=== PATIENT | male | born 1955 | race Caucasian/White ===

== ENCOUNTER 2017-10-29 08:29 | Emergency (ER) | payer MEDICARE, SELFPAY ==
[2017-10-29 08:30] VITALS: BP 180/130; PULSE 90; RESP 18; TEMP 37; O2SAT 98; BMI 32.9
--- NOTE | 2017-10-29 08:44 | EKG12_ITS ---
Test Reason : GI Blood Pressure : / mmHG Vent. Rate : 067 BPM Atrial Rate : 067 BPM P-R Int : 178 ms QRS Dur : 088 ms QT Int : 360 ms P-R-T Axes : 058 031 014 degrees QTc Int : 380 ms Normal sinus rhythm with sinus arrhythmia Normal ECG Confirmed by CHALO EATON, SHADIA ([id number]), material expeditor BEKAH COULTER ([id number] on 11/03/2017 3:33:54 PM Referred By: ANDRADE Confirmed By:SHADIA ISABEL MD
--- NOTE | 2017-10-29 08:49 | ED.DCSUM_ITS ---
- ER Visit Summary Date of Service: 10/29/17 Chief Complaint: Diarrhea History of Present Illness: The patient is a 62 M presenting with diarrhea. Patient states he had 2 normal bowel movements yesterday. He states today he had diarrhea x1. No blood in his stool. No recent antibiotics or travel. He states his is sick with URI symptoms. She does not have diarrhea. He denies fever. Denies chest pain. He states he feels generally weak and tired. He has nausea with no vomiting. Denies abdominal pain. Denies other complaints. Physical Examination: Vitals are stable. Patient is afebrile. Alert no acute distress. HEENT exam is unremarkable. Neck is supple. Lungs are clear and equal bilaterally. Heart is regular rate and rhythm. Abdomen is soft nontender nondistended. No rebound or guarding. Reducible hernia. Extremities are unremarkable. Skin is warm and dry. No focal neurologic deficit. Remainder of exam is unremarkable. Emergency Department Course and Treatment: Patient is given IV fluids. CBC, chemistries are unremarkable. Troponin is negative. EKG is sinus rate of 67 with no acute changes. Patient is feeling improved on reevaluation. His repeat blood pressure is improved. He is advised to follow-up with his primary care physician. Advised return to ED for any worsening complaints. Disposition: Discharge home Impression: Diarrhea, generalized weakness This note was generated with [employer] dictation software. It may contain incorrect words, spelling, and punctuation that were not noted in review of the chart prior to signing ED Disposition - Plan for ED Patient: Chief Complaint: Diarrhea Referrals: Travis Naik MD [Primary Care Provider] -
[2017-10-29 09:05] LABS: Absolute Lymphocyte Count 1.37 X10^3/ul (0.83-4.51); Absolute Neutrophil Count 4.4 X10^3/uL (2.0-7.7); Basophil# 0.02 X10^3/uL; Basophil% 0.3 % (0-1); Eosinophil# 0.06 X10^3/uL; Hematocrit 49.3 % (40-54); Hemoglobin 16.6 g/dl (13.0-16.5); Lymphocyte # 1.37 X10^3/ul (4.0); Lymphocyte % 22.2 % (19-41); Mean Corp Hgb Conc 33.7 g/gl (32-36); Mean Corpuscular Hgb 30.2 pg (27.0-32.0); Mean Corpuscular Volume 89.8 fL (80-94); Mean Platelet Vol. 9.5 fl (6.2-12.0); Monocyte# 0.36 X10^3/uL; Monocyte% 5.8 % (0-10); Neutrophil # 4.35 X10^3/uL (2.7-7.7); Neutrophil % 70.4 % (47-70); POSITIVE COUNT NO; POSITIVE DIFFERENTIAL NO; POSITIVE MORPHOLOGY NO; Platelet Count 203 K/mm3 (150-450); RBC Distribution Width CV 13.9 % (11.6-14.6); RBC Distribution Width SD 45.7 fl (35.1-43.9); Red Blood Count 5.49 M/mm3 (4.6-6.2); White Blood Count 6.2 K/mm3 (4.4-11.0)
[2017-10-29] MEDS: 0.9% Normal Saline 1,000 ML 1000 ML IV (09:05)
[2017-10-29 09:14] LABS: Red Blood Cells-Urine 0 SEEN /hpf (0-5)
[2017-10-29 09:18] LABS: Anion Gap 9 (5-15); BUN 9 mg/dL (7-18); BUN/Creat Ratio 10.1 RATIO (10-20); Calcium,Total 9.2 mg/dL (8.5-10.1); Chloride 108 mmol/L (98-107); Creatinine, Serum 0.89 mg/dL (0.70-1.30); EST Glomerular Filtration Rate 91 mL/min (>60); Est Glom Filt Rate - Afr Amer 110 mL/min (>60); Estimated Creatinine Clearance 101.54 ml/min; Glucose 105 mg/dL (74-106); Potassium 4.1 mmol/L (3.5-5.1); Sodium Level 144 mmol/L (136-145)
[2017-10-29 09:31] LABS: Color, Urine Yellow (Yellow); Glucose, Dipstick Normal (Normal); Ketone-Dipstick 5 mg/dl (Negative); Leukocyte Esterase-Dipstick 25 /ul (Negative); Nitrite-Dipstick Negative (Negative); Occult Blood-Urine Negative /ul (Negative); Protein-Dipstick Negative (Negative); Urine Bilirubin Dipstick Negative (Negative); Urine Clarity Clear (Clear); Urine Urobilinogen Normal (Normal)
[2017-10-29 09:34] LABS: Bacteria 1+ /hpf (None Seen); Mucous, Urine 1+ /hpf (<or=2+); Squamous Epithelial Cells - UA 0-5 SEEN /hpf (0-5); White Blood Cells 0-5 SEEN /hpf (0-5)
--- NOTE | 2017-10-29 11:22 | ED.DEP ---
ED Disposition - Plan for ED Patient: Chief Complaint: Diarrhea Instructions: ED Diarrhea Viral Referrals: Travis Naik MD [Primary Care Provider] -
[2017-10-29 11:51] VITALS: BP 178/102; PULSE 81; RESP 16; O2SAT 98
== END 2017-10-29 11:52 | disposition home or self-care (01) ==
PROVIDERS: Emergency Provider Emergency Medicine; Family Provider Family Medicine; PCP Family Medicine
DX: R19.7 Diarrhea, unspecified (principal); R53.1 Weakness; I10 Essential (primary) hypertension; E03.9 Hypothyroidism, unspecified; Z79.82 Long term (current) use of aspirin; Z79.899 Other long term (current) drug therapy; Z87.820 Personal history of traumatic brain injury
CPT/HCPCS: 80048; 81001; 84484; 85025; 93005; 96360; 96361; 99285; J7030; A4216

== ENCOUNTER 2017-11-09 18:05 | Observation (INO) | payer MEDICARE, SELFPAY ==
[2017-11-09 18:06] VITALS: BP 147/96; PULSE 76; RESP 16; TEMP 37.3; O2SAT 96; BMI 32.8
--- NOTE | 2017-11-09 18:31 | EKG12_ITS ---
Test Reason : SOB Blood Pressure : / mmHG Vent. Rate : 067 BPM Atrial Rate : 067 BPM P-R Int : 170 ms QRS Dur : 092 ms QT Int : 370 ms P-R-T Axes : 057 016 003 degrees QTc Int : 390 ms Normal sinus rhythm with sinus arrhythmia Nonspecific T wave abnormality Abnormal ECG Confirmed by SANTANA EATON, BECKY ([id number]), editor map BEKAH COULTER ([id number]) on 11/11/2017 2:37:50 PM Referred By: MIHIR Confirmed By:BECKY DILLON MD
--- NOTE | 2017-11-09 18:40 | RAD_ITS ---
STUDY: X-RAY CHEST REASON FOR EXAM: Male, 62 years old. Chest pain TECHNIQUE: Single AP portable view of the chest. COMPARISON: 04/18/2016 FINDINGS: The lungs are clear and expanded. There is no demonstrated pleural abnormality. Normal size heart. Normal mediastinum and loyda. Normal visualized pulmonary arteries. Normal visualized aortic arch and descending thoracic aorta. Normal visualized thoracic spine. Normal visualized ribs, clavicles, and shoulders. There is no demonstrated abnormality of the visualized soft tissue structures of the upper abdomen. RAD/Chest 1 View (Portable) IMPRESSION: Normal x-ray examination of the chest. Electronically Signed: Kosta Betts MD at 19:09 EDT , Service support ,
[2017-11-09 18:53] LABS: Absolute Neutrophil Count 4.4 X10^3/uL (2.0-7.7); Basophil# 0.03 X10^3/uL; Basophil% 0.4 % (0-1); Eosinophil# 0.04 X10^3/uL; Eosinophils% 0.6 % (0-5); Hematocrit 45.9 % (40-54); Hemoglobin 15.3 g/dl (13.0-16.5); Lymphocyte % 31.3 % (19-41); Mean Corp Hgb Conc 33.3 g/gl (32-36); Mean Corpuscular Hgb 30.1 pg (27.0-32.0); Mean Corpuscular Volume 90.2 fL (80-94); Mean Platelet Vol. 9.4 fl (6.2-12.0); Monocyte# 0.38 X10^3/uL; Monocyte% 5.4 % (0-10); Neutrophil # 4.36 X10^3/uL (2.7-7.7); Neutrophil % 62.2 % (47-70); Platelet Count 180 K/mm3 (150-450); RBC Distribution Width CV 13.7 % (11.6-14.6); RBC Distribution Width SD 45.2 fl (35.1-43.9); Red Blood Count 5.09 M/mm3 (4.6-6.2)
[2017-11-09 18:54] LABS: POSITIVE COUNT NO; POSITIVE DIFFERENTIAL NO; POSITIVE MORPHOLOGY NO
[2017-11-09 19:11] VITALS: O2SAT 95
[2017-11-09 19:15] LABS: Anion Gap 6 (5-15); BUN 17 mg/dL (7-18); BUN/Creat Ratio 18.1 RATIO (10-20); Calcium,Total 9.1 mg/dL (8.5-10.1); Chloride 108 mmol/L (98-107); Creatinine, Serum 0.94 mg/dL (0.70-1.30); EST Glomerular Filtration Rate 86 mL/min (>60); Est Glom Filt Rate - Afr Amer 104 mL/min (>60); Estimated Creatinine Clearance 96.14 ml/min; Glucose 108 mg/dL (74-106); Potassium 3.4 mmol/L (3.5-5.1); Sodium Level 140 mmol/L (136-145)
[2017-11-09 19:44] VITALS: BP 161/99; PULSE 60; RESP 17; O2SAT 97
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
[2017-11-09 21:55] VITALS: BP 167/89; PULSE 53; RESP 14; O2SAT 100
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
[2017-11-09 22:33] VITALS: BP 174/102; PULSE 57; RESP 16; O2SAT 98
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
[2017-11-10] VITALS (10 sets, daily range): BP systolic 134–176; BP diastolic 78–114; PULSE 60–76; RESP 16–18; TEMP 36.5–36.8; O2SAT 97–98; BMI 32.6
[2017-11-10] MEDS: Pantoprazole Sodium 40 MG Tablet PO ×2 (01:10→11:02)
[2017-11-10] MEDS: Lisinopril 10 MG Tablet PO (01:10)
[2017-11-10 02:18] LABS: D-Dimer Quantitative (DVT/PE) < 0.27 FEU/ug/m (0.27-0.49)
[2017-11-10 02:20] LABS: BNP,B-Type NATRIURETIC PEPTIDE 16.2 pg/mL (0-100)
[2017-11-10 02:21] LABS: AST(SGOT) 34 U/L (15-37); Alanine Aminotransfer ALT/SGPT 25 U/L (16-61); Albumin, Serum 3.8 g/dL (3.2-5.0); Alkaline Phosphatase 57 U/L (45-117); Globulin 3.3 g/dL (2.2-4.2); Magnesium 2.3 mg/dL (1.6-2.6); Protein, Total 7.1 g/dL (6.4-8.2)
[2017-11-10] MEDS: Aspirin 325 MG Tablet PO (04:59)
[2017-11-10] MEDS: Levothyroxine 100 MCG Tablet PO (05:00)
[2017-11-10 07:52] LABS: Cholesterol 167 mg/dL (200); High Density Lipoprotein 47 mg/dL; T4 Free Direct 0.82 ng/dL (0.76-1.46); Thyroid Stim Hormone (TSH) 2.76 uIU/mL (0.358-3.74); Triglycerides 101 mg/dL; Very Low Density Lipoprotein 20 mg/dL (5-40)
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
[2017-11-10 09:44] LABS: Vitamin B12 539 pg/mL (211-911)
[2017-11-10] MEDS: Heparin Injection (Vial) 5,000 UNIT/ML VIAL 5000 UNIT SC (11:01)
[2017-11-10] MEDS: busPIRone 5 MG Tablet 10 MG PO (11:02)
--- NOTE | 2017-11-10 11:25 | STRESSREP_ITS ---
Stress Test Report Pharmacologic myocardial perfusion stress test. 62-year-old man with a history of chest pain. Stress protocol: Resting EKG demonstrates sinus bradycardia with a rate of 57 bpm normal intervals and noted resting blood pressure is 180/110 mmHg. 0.4 mg of regadenoson was infused per usual protocol followed by rapid intravenous saline flush injection continuous EKG monitoring was performed. The maximum heart rate attained was 100 bpm which was a 63% maximum predicted heart rate the maximum workload of 1 metabolic equivalent. At rest were no ST or T-wave changes noted to suggest abnormal flow reserve at peak infusion no ST or T-wave changes were noted suggest abnormal flow reserve. Resting blood pressure is 180 /110 with a final blood pressure 178/100 mmHg. Myocardial perfusion protocol. 14.9 mCi of technetium 99m sestamibi was injected at rest. 0.4 mg regadenoson was infused per usual protocol. Peak infusion 44.7 mCi of technetium 99m sestamibi was injected stress images were obtained stress and rest images were reconstructed and compared in the short axis vertical long and horizontal long axis. Gated images were also obtained pre- Perfusion SPECT analysis: Review of the stress images demonstrate normal uptake of tracer noted in all areas of the myocardium. The resting images similarly demonstrate normal uptake of tracer noted in all areas of the myocardium. No reversibility is noted suggest ischemia no previous infarct is noted. Gated SPECT analysis: The gated ejection fraction is noted to be 63%. Conclusion: Normal pharmacologic myocardial perfusion stress test. Preserved ejection fraction.
--- NOTE | 2017-11-10 14:00 | SLEEP ---
Went to visit patient and explain what to expect for a sleep study, patient engaged in questions and tech answered all questions patient had. Explained that upon discharge he should be scheduled for a overnight sleep study we also talked about the benefits of treating sleep disorders.
--- NOTE | 2017-11-10 15:01 | PN_ITS ---
Patient Problems: Active and Suspected Problems Dyspnea on exertion (Acute) Generalized weakness (Acute) Subjective: No further chest pain. Just complains of being fatigued. Vitals/I&O's: Vital Signs Temp Pulse Resp BP Pulse Ox 36.6 C 71 16 156/81 H 97 11/10/17 10:05 11/10/17 12:26 11/10/17 10:05 11/10/17 10:05 11/10/17 10:05 Oxygen Delivery Method Room Air Weight: 118.4 kg Body Mass Index (BMI) 32.6 Intake and Output for Last 24 Hours 11/08/17 11/09/17 11/10/17 23:59 23:59 23:59 Intake Total 320 / 320 Balance 320 / 320 General: Alert, Cooperative, No apparent distress HEENT: Atraumatic, PERRLA, EOMI Oral: Moist Mucosa, No Gingival or Mucosal Lesions/ Ulcerations Neck: No Nodes, Thyroid Normal Size and Texture Lungs: Clear to auscultation, Normal air movement, No rhonchi, No wheeze Cardiovascular: Regular rate, Regular Rhythm, Normal S1, Normal S2 Abdomen: Bowel Sounds Present, Soft, Non Tender, Non-Distended, No Hepato- splenomegaly Extremities: No edema, No Calf Tenderness Skin: No rashes, No breakdown Musculoskeletal: No Tenderness to Palpation of Joints or Extremities, No Muscle Wasting Lymphatic: No Cervical, Supraclavicular, or Inguinal Adenopathy, Cervical Adenopathy Psych/Mental Status: Normal Affect, Appropriate Laboratory Results 11/10/17 00:44: D-Dimer Quant (PE/DVT) < 0.27 L 11/10/17 00:44: Magnesium 2.3, Total Bilirubin 0.60, Direct Bilirubin 0.10, AST 34, ALT 25, Alkaline Phosphatase 57, Total Protein 7.1, Albumin 3.8, Globulin 3.3 11/10/17 00:44: B-Natriuretic Peptide 16.2 11/10/17 00:44: Troponin I < 0.02 11/10/17 05:04: Triglycerides 101, Cholesterol 167, LDL Cholesterol 100, VLDL Cholesterol 20, HDL Cholesterol 47, Folate 34.80, TSH 2.76, Free T4 0.82 11/10/17 05:04: Vitamin B12 539 11/10/17 05:04: Troponin I < 0.02 11/10/17 08:05: Troponin I < 0.02 11/10/17 14:47: Troponin I Pending Current [facility]ations [facility] Admin: 11/10/17 04:59 Dose: 325 mg Buspirone HCl (Buspar) 10 mg PO DAILY [facility] Last Admin: 11/10/17 11:02 Dose: 10 mg Heparin Sodium (Porcine) (Heparin Na) 5,000 unit SC BID [facility] Last Admin: 11/10/17 11:01 Dose: 5,000 units Hydralazine HCl (Apresoline Iv) 10 mg IV Q4H PRN PRN PRN Reason: SBP>180 Levothyroxine Sodium (Synthroid) 100 mcg PO DAILY@0600 [facility] Last Admin: 11/10/17 05:00 Dose: 100 mcg Lisinopril (Zestril) 10 mg PO DAILY [facility] Last Admin: 11/10/17 02:03 Dose: Not Given Nitroglycerin (Nitrostat) 0.4 mg SUBLINGUAL Q5M PRN PRN Reason: CHEST PAIN Pantoprazole Sodium (Protonix) 40 mg PO DAILY [facility] Last Admin: 11/10/17 11:02 Dose: 40 mg Potassium Chloride (K-Dur) 20 meq PO DAILY [facility] Last Admin: 11/10/17 11:02 Dose: 20 meq Sodium Chloride () 5 - 30 ml IV UD PRN PRN Reason: SALINE FLUSH Medical Necessity - Tobacco Use Smoking Status: Former smoker Assessment/Plan Active and Suspected Problems Dyspnea on exertion (Acute) Generalized weakness (Acute) 1. chest pain: * stress test negative. * no further work up 2. Fatigue * no definitive etiology identified at this time. * will need follow up with PSG. notes apneic episodes at home. 3. TBI * no szr on EEG * follow up with neurology as outpt.
--- NOTE | 2017-11-10 15:03 | PCM.DC ---
- Discharge Diagnoses Current Active Problems: Current Active and Chronic Problems Dyspnea on exertion (Acute) Generalized weakness (Acute) Traumatic brain injury (Chronic) Hypothyroidism (Chronic) You will use the following diet at home:: No restrictions Your food should be the consistency of: Regular Your liquids should be the consistency of: Regular/Thin Call your doctor if you observe: Fever of 101 or Higher, Shortness of breath, Chest pain Allergies/Adverse Reactions: Allergies No Known Allergies Allergy (Verified 10/29/17 08:33) Medications to take at Discharge Levothyroxine [Synthroid] 100 mcg PO DAILY 11/01/14 Aspirin 325 mg PO BID 04/13/17 Ibuprofen [Motrin] 800 mg PO TID PRN PRN #20 tablet 04/13/17 Potassium 3 day PO DAILY 11/09/17 Potassium Chloride [K-Dur] 20 meq PO DAILY 11/09/17 busPIRone [Buspar] 10 mg PO DAILY 11/09/17 Lisinopril [Zestril] 10 mg PO DAILY #30 tab 11/10/17 The following prescriptions were given: Lisinopril [Zestril] 10 mg PO DAILY #30 tab Primary Care Physician: Travis Naik MD [Primary Care Provider] - Within 2 Weeks Please Follow Up With: Jl Church MD - sleep study When: 2-4 weeks Proposed Discharge Date: 11/10/17
--- NOTE | 2017-11-10 15:05 | PCM.DC.SUM ---
Discharge Date and Diagnosis - Problem List Patient Problems: Active and Suspected Problems Fatigue (Acute) Chest pain (Acute) Date of Admission: 11/09/17 Date of Discharge: 11/10/17 - Primary Discharge Diagnosis Active and Suspected Problems Fatigue (Acute) Chest pain (Acute) - Secondary Discharge Diagnosis Chronic Problems Traumatic brain injury (Chronic) Hypothyroidism (Chronic) Hospital Course and Treatment Imaging Results: Clinical Impression(s) from Imaging Studies Chest X-Ray 11/09/17 18:40 IMPRESSION: Normal x-ray examination of the chest. Electronically Signed: Kosta Betts MD at 19:09 EDT , Service support , Operations: None Procedures: Stress test Summary of Care Provided: The patient is a 62 year old M presents with weakness and chest pain. Stress negative. Seen by neuro for h/o TBI. No szr on EEG. Did recommend outpt PSG to eval for ZOHRA. Fatigue maybe multifactorial.Pt started on lisinopril for hypertension.[] Discharge Diet: No Restrictions Discharge Activity: Return to Normal Activity Call your doctor if you observe: Fever of 101 or Higher, Shortness of breath, Chest pain Home Medications: Medications to take at Discharge Levothyroxine [Synthroid] 100 mcg PO DAILY 11/01/14 Aspirin 325 mg PO BID 04/13/17 Ibuprofen [Motrin] 800 mg PO TID PRN PRN #20 tablet 04/13/17 Potassium 3 day PO DAILY 11/09/17 Potassium Chloride [K-Dur] 20 meq PO DAILY 11/09/17 busPIRone [Buspar] 10 mg PO DAILY 11/09/17 Lisinopril [Zestril] 10 mg PO DAILY #30 tab 11/10/17 Following Prescrptions Were Given to Patient: Lisinopril [Zestril] 10 mg PO DAILY #30 tab Primary Care Physician: Travis Naik MD [Primary Care Provider] - Within 2 Weeks Please Follow Up With: Jl Church MD - sleep study When: 2-4 weeks Disposition: Home Minutes spent on discharge:: 28 Patient Condition:: Good Medical Necessity - Tobacco Use Smoking Status: Former smoker Meaningful Use Info Meaningful Use Diagnoses (Choose all that apply): None applicable Code Visit OBSV E&M: 29467 Observation care discharge
--- NOTE | 2017-11-10 15:08 | DS.PCM_ITS ---
Discharge Date and Diagnosis - Problem List Patient Problems: Active and Suspected Problems Fatigue (Acute) Chest pain (Acute) Date of Admission: 11/09/17 Date of Discharge: 11/10/17 - Primary Discharge Diagnosis Active and Suspected Problems Fatigue (Acute) Chest pain (Acute) - Secondary Discharge Diagnosis Chronic Problems Traumatic brain injury (Chronic) Hypothyroidism (Chronic) Hospital Course and Treatment Imaging Results: Clinical Impression(s) from Imaging Studies Chest X-Ray 11/09/17 18:40 IMPRESSION: Normal x-ray examination of the chest. Electronically Signed: Kosta Betts MD at 19:09 EDT , Service support , Operations: None Procedures: Stress test Summary of Care Provided: The patient is a 62 year old M presents with weakness and chest pain. Stress negative. Seen by neuro for h/o TBI. No szr on EEG. Did recommend outpt PSG to eval for ZOHRA. Fatigue maybe multifactorial.Pt started on lisinopril for hypertension.[] Discharge Diet: No Restrictions Discharge Activity: Return to Normal Activity Call your doctor if you observe: Fever of 101 or Higher, Shortness of breath, Chest pain Home Medications: Medications to take at Discharge Levothyroxine [Synthroid] 100 mcg PO DAILY 11/01/14 Aspirin 325 mg PO BID 04/13/17 Ibuprofen [Motrin] 800 mg PO TID PRN PRN #20 tablet 04/13/17 Potassium 3 day PO DAILY 11/09/17 Potassium Chloride [K-Dur] 20 meq PO DAILY 11/09/17 busPIRone [Buspar] 10 mg PO DAILY 11/09/17 Lisinopril [Zestril] 10 mg PO DAILY #30 tab 11/10/17 Following Prescrptions Were Given to Patient: Lisinopril [Zestril] 10 mg PO DAILY #30 tab Primary Care Physician: Travis Naik MD [Primary Care Provider] - Within 2 Weeks Please Follow Up With: Jl Church MD - sleep study When: 2-4 weeks Disposition: Home Minutes spent on discharge:: 28 Patient Condition:: Good Medical Necessity - Tobacco Use Smoking Status: Former smoker Meaningful Use Info Meaningful Use Diagnoses (Choose all that apply): None applicable Code Visit OBSV E&M: 39584 Observation care discharge
== END 2017-11-10 15:04 | disposition home or self-care (01) ==
LOC: ED 18:41 → PCU 23:22
PROVIDERS: Admitting Provider Internal Medicine; Emergency Provider Emergency Medicine; Family Provider Family Medicine; PCP Family Medicine
DX: R07.89 Other chest pain (principal); I10 Essential (primary) hypertension; R06.09 Other forms of dyspnea; K43.9 Ventral hernia without obstruction or gangrene; Z87.891 Personal history of nicotine dependence; Z87.820 Personal history of traumatic brain injury; Z79.899 Other long term (current) drug therapy; Z79.82 Long term (current) use of aspirin; E03.9 Hypothyroidism, unspecified; J44.9 Chronic obstructive pulmonary disease, unspecified; E87.6 Hypokalemia; R53.83 Other fatigue; G47.33 Obstructive sleep apnea (adult) (pediatric)
CPT/HCPCS: 36415; 71045; 78452; 80048; 80061; 80076; 82607; 82746; 83735; 83880; 84439; 84443; 84484; 85025; 85379; 93005; 93017; 96372; 99218; 99285; A9500; Q9957; A4216; G0378; J2785

== ENCOUNTER → 2017-11-14 20:00 | Outpatient (CLI) | payer MEDICARE, SELFPAY | PROVIDERS: Family Provider Family Medicine; PCP Family Medicine; Visit Provider Psychiatry & Neurology Neurology | DX: G47.33 Obstructive sleep apnea (adult) (pediatric) (principal) | CPT/HCPCS: 95811 ==

== ENCOUNTER 2018-03-21 17:42 | Emergency (ER) | payer MEDICARE, SELFPAY ==
[2018-03-21 17:43] VITALS: BP 177/97; PULSE 56; RESP 11; TEMP 36.7; O2SAT 99; BMI 31.4
--- NOTE | 2018-03-21 18:19 | EKG12_ITS ---
Test Reason : GENERAL ILLNESS Blood Pressure : / mmHG Vent. Rate : 068 BPM Atrial Rate : 068 BPM P-R Int : 186 ms QRS Dur : 090 ms QT Int : 390 ms P-R-T Axes : 074 045 026 degrees QTc Int : 414 ms Sinus rhythm with marked sinus arrhythmia Otherwise normal ECG Confirmed by SANTANA EATON, BECKY ([id number]), non linear editor BEKAH COULTER ([id number] on 03/24/2018 1:09:46 PM Referred By: ANGEL Confirmed By:BECKY DILLON MD
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
[2018-03-21 18:32] LABS: Absolute Lymphocyte Count 1.72 X10^3/ul (0.83-4.51); Absolute Neutrophil Count 3.3 X10^3/uL (2.0-7.7); Basophil# 0.04 X10^3/uL; Basophil% 0.7 % (0-1); Eosinophil# 0.03 X10^3/uL; Eosinophils% 0.6 % (0-5); Hematocrit 42.4 % (40-54); Hemoglobin 14.4 g/dl (13.0-16.5); Lymphocyte # 1.72 X10^3/ul (4.0); Lymphocyte % 31.9 % (19-41); Mean Corpuscular Hgb 30.7 pg (27.0-32.0); Mean Corpuscular Volume 90.4 fL (80-94); Mean Platelet Vol. 9.6 fl (6.2-12.0); Monocyte# 0.34 X10^3/uL; Monocyte% 6.3 % (0-10); Neutrophil # 3.26 X10^3/uL (2.7-7.7); Neutrophil % 60.3 % (47-70); Platelet Count 182 K/mm3 (150-450); RBC Distribution Width CV 14.4 % (11.6-14.6); RBC Distribution Width SD 47.1 fl (35.1-43.9); Red Blood Count 4.69 M/mm3 (4.6-6.2); White Blood Count 5.4 K/mm3 (4.4-11.0)
[2018-03-21 18:36] LABS: POSITIVE COUNT NO; POSITIVE DIFFERENTIAL NO; POSITIVE MORPHOLOGY NO
[2018-03-21 18:53] LABS: ALB/GLOB Ratio 1.2 RATIO (0.9-2.4); AST(SGOT) 13 U/L (15-37); Alanine Aminotransfer ALT/SGPT 18 U/L (16-61); Albumin, Serum 3.7 g/dL (3.2-5.0); Alkaline Phosphatase 50 U/L (45-117); Anion Gap 7 (5-15); BUN 11 mg/dL (7-18); BUN/Creat Ratio 11.1 RATIO (10-20); Calcium,Total 8.8 mg/dL (8.5-10.1); Chloride 109 mmol/L (98-107); EST Glomerular Filtration Rate 81 mL/min (>60); Est Glom Filt Rate - Afr Amer 97 mL/min (>60); Estimated Creatinine Clearance 90.37 ml/min; Globulin 3.2 g/dL (2.2-4.2); Glucose 76 mg/dL (74-106); Potassium 3.7 mmol/L (3.5-5.1); Protein, Total 6.9 g/dL (6.4-8.2); Sodium Level 143 mmol/L (136-145)
[2018-03-21 19:14] LABS: Color, Urine Yellow (Yellow); Glucose, Dipstick Normal (Normal); Ketone-Dipstick Negative (Negative); Leukocyte Esterase-Dipstick Negative /ul (Negative); Nitrite-Dipstick Negative (Negative); Occult Blood-Urine Negative /ul (Negative); Protein-Dipstick Negative (Negative); Urine Bilirubin Dipstick Negative (Negative); Urine Clarity Clear (Clear); Urine Urobilinogen Normal (Normal)
[2018-03-21 20:04] VITALS: BP 168/98; PULSE 59; RESP 19; O2SAT 99
== END 2018-03-21 20:18 | disposition home or self-care (01) ==
PROVIDERS: Emergency Provider Emergency Medicine; Family Provider Family Medicine; PCP Family Medicine
DX: R41.82 Altered mental status, unspecified (principal); Z87.820 Personal history of traumatic brain injury; E03.9 Hypothyroidism, unspecified; E87.6 Hypokalemia; Z79.82 Long term (current) use of aspirin; Z79.899 Other long term (current) drug therapy
CPT/HCPCS: 70450; 71045; 80053; 81002; 84443; 85025; 93005; 99285; J7040

== ENCOUNTER 2018-03-23 11:44 | Observation (INO) | payer MEDICARE, SELFPAY ==
[2018-03-23] VITALS (10 sets, daily range): BP systolic 126–174; BP diastolic 70–98; PULSE 47–85; RESP 14–17; TEMP 36.3–37.2; O2SAT 98–100; BMI 30.2; BMI 30.1
--- NOTE | 2018-03-23 12:29 | EKG12_ITS ---
Test Reason : VISION PROBLEMS Blood Pressure : / mmHG Vent. Rate : 048 BPM Atrial Rate : 048 BPM P-R Int : 182 ms QRS Dur : 092 ms QT Int : 410 ms P-R-T Axes : 035 013 015 degrees QTc Int : 366 ms Sinus bradycardia Otherwise normal ECG Confirmed by SANTANA EATON, BECKY ([id number]), scientific editor BEKAH COULTER ([id number]) on 03/25/2018 1:38:22 PM Referred By: Denise Pa Confirmed By:BECKY DILLON MD
[2018-03-23 13:08] LABS: Anion Gap 7 (5-15); BUN 9 mg/dL (7-18); BUN/Creat Ratio 10.8 RATIO (10-20); Calcium,Total 9.1 mg/dL (8.5-10.1); Chloride 110 mmol/L (98-107); Creatinine, Serum 0.83 mg/dL (0.70-1.30); EST Glomerular Filtration Rate 99 mL/min (>60); Est Glom Filt Rate - Afr Amer 120 mL/min (>60); Estimated Creatinine Clearance 108.88 ml/min; Glucose 90 mg/dL (74-106); Potassium 3.8 mmol/L (3.5-5.1); Sodium Level 141 mmol/L (136-145)
[2018-03-23 13:18] LABS: Prothrombin Time (Protime)PT. 12.9 SECONDS (11.7-14.9)
[2018-03-23 13:19] LABS: Partial Thromboplast Time 29.3 Seconds (24.1-36.2)
[2018-03-23 13:25] LABS: Absolute Lymphocyte Count 1.54 X10^3/ul (0.83-4.51); Absolute Neutrophil Count 3.5 X10^3/uL (2.0-7.7); Basophil# 0.02 X10^3/uL; Basophil% 0.4 % (0-1); Eosinophil# 0.05 X10^3/uL; Eosinophils% 0.9 % (0-5); Hematocrit 42.8 % (40-54); Hemoglobin 14.1 g/dl (13.0-16.5); Lymphocyte # 1.54 X10^3/ul (4.0); Lymphocyte % 28.3 % (19-41); Mean Corp Hgb Conc 32.9 g/gl (32-36); Mean Corpuscular Hgb 29.9 pg (27.0-32.0); Mean Corpuscular Volume 90.9 fL (80-94); Mean Platelet Vol. 9.9 fl (6.2-12.0); Monocyte# 0.34 X10^3/uL; Monocyte% 6.3 % (0-10); Neutrophil # 3.48 X10^3/uL (2.7-7.7); Neutrophil % 63.9 % (47-70); Platelet Count 174 K/mm3 (150-450); RBC Distribution Width CV 14.3 % (11.6-14.6); RBC Distribution Width SD 47.8 fl (35.1-43.9); Red Blood Count 4.71 M/mm3 (4.6-6.2); White Blood Count 5.4 K/mm3 (4.4-11.0)
[2018-03-23 13:26] LABS: POSITIVE COUNT NO; POSITIVE DIFFERENTIAL NO; POSITIVE MORPHOLOGY NO
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
--- NOTE | 2018-03-23 14:32 | NURSING ---
PCU LT EYE VISION CHANGES, TIA, CVA OBS
[2018-03-23] MEDS: 0.9% Normal Saline 1,000 ML 150 ML IV (14:38)
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
--- NOTE | 2018-03-23 14:43 | NUR.TO.PHY ---
Called ED charge nurse to send patient.
--- NOTE | 2018-03-23 15:01 | ECHOD_ITS ---
Reason For Study: TIA/CVA Procedure This was a 2D Doppler, Color Flow transthoracic echocardiogram. Exam performed portable in patient room. Left Ventricle Normal LV size. Left ventricular systolic function is normal. The estimated ejection fraction is 55 %. No evidence for diastolic dysfunction. No regional wall motion abnormalities noted. Right Ventricle Normal RV size. Normal systolic function. Atria The left atrium is moderately enlarged. Normal right atrium. Mitral Valve Mild focal mitral valve calcification. Mild (1+) eccentric mitral valve insufficiency. Tricuspid Valve Normal tricuspid valve. Aortic Valve Trisinus/trileaflet aortic valve. Mild focal aortic valve calcification. Pulmonic Valve Normal pulmonic valve. Great Vessels Normal aortic root. The pulmonary artery is normal size. Normal inferior vena cava. Pericardium/Pleural No pericardial effusion. MMode/2D Measurements & Calculations LVIDd: 5.6 cm IVSd: 1.1 cm Ao root diam: 3.3 cm LVIDs: 3.4 cm LVPWd: 1.1 cm LA dimension: 3.8 cm RVDd: 3.3 cm FS: 39.0 % LAV(MOD-bp): 83.7 ml LA A4 area: 26.4 cm2 RA A4 area: 17.3 cm2 LAV(MOD-bp) Indexed: 35.7 ml/m2 LAV(MOD-sp2): 71.3 ml LAV(MOD-sp4): 91.5 ml Doppler Measurements & Calculations MV E max sharath: 94.9 cm/sec Lat Peak E' Sharath: 9.9 cm/sec Med Peak E' Sharath: 9.8 cm/sec MV A max sharath: 85.7 cm/sec E/E' lat: 9.6 E/E' med: 9.7 MV E/A: 1.1 Ao V2 max: 153.1 cm/sec LV V1 max: 125.5 cm/sec PA V2 max: 95.8 cm/sec Ao max P.4 mmHg LV V1 max P.3 mmHg Interpretation Summary Normal LV size. Left ventricular systolic function is normal. The estimated ejection fraction is 55 %. No evidence for diastolic dysfunction. Mild focal mitral valve calcification. Ordering Physician: Denise Pa Referring Physician: Adam Naik Performed By: Andria Richards, RADHA, RVT
--- NOTE | 2018-03-23 15:01 | MRI_ITS ---
STUDY: MRI BRAIN WITHOUT CONTRAST REASON FOR EXAM: Male, 62 years old. CVA TECHNIQUE: Standardized multiplanar fat and water weighted pulse sequences were obtained. COMPARISON: CT of the brain on March 23, 2018 FINDINGS: Minor atrophy and periventricular white matter ischemic changes. There is gliosis in the left frontal parietal region without mass effect or restricted diffusion. There is encephalomalacia in the right anterior temporal lobe and mild gliosis consistent with old injury or infarct Normal bilateral basal ganglia. Normal thalami. There is no extra-axial fluid accumulation. Normal flow voids within the major intracranial circulation suggesting patency by spin echo criteria. Partial empty sella deformity. Normal, infundibular stalk, optic chiasm and hypothalamus. Normal tectal plate and pineal gland. Normal midbrain, conchita and medulla. Normal cerebellum. Normal basal cisterns. Normal bilateral temporal bones. Normal bilateral internal auditory canals. Fluid density is seen in the right mastoid apex consistent with inflammatory disease No demonstrated orbital abnormality, within the constraints of a routine brain study. There is minor mucosal thickening within the ethmoid air cells. Normal calvarium and skull base. Normal visualized soft tissue structures. Normal visualized upper cervical spine. 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 No evidence for acute infarct Electronically Signed: Nabor Dutton MD at 19:51 EDT , Service support ,
--- NOTE | 2018-03-23 15:53 | CT_ITS ---
STUDY: CTA NECK WITH CONTRAST REASON FOR EXAM: Male, 62 years old. There is old disturbance left eye chronic balance problem RADIATION DOSAGE (If Supplied By Facility): CTDIvol = ( 37.07 ) mGy, DLP = ( 1652.66 ) mGycm TECHNIQUE: CT angiography with multi-detector data acquisition was performed from the aortic arch to the skull base following intravenous administration of 100CC ml of Isovue 370 contrast. MIP images were reconstructed from the axial data set. Post-processing of the angiographic images was performed, with multiplanar reformation and 3D reconstruction. Individualized dose optimization techniques were used for this CT. COMPARISON: None. FINDINGS: AORTIC ARCH: There is partial calcification of the aortic arch. Normal origins of the brachiocephalic, left common carotid, and left subclavian arteries. RIGHT CAROTID ARTERIES: There is atherosclerotic tortuous elongation of the right common carotid artery. There is moderate atherosclerotic plaque formation with moderate narrowing of the right carotid bulb. There is moderate atherosclerotic plaque formation of the origin of the right internal carotid artery with an estimated stenosis of 50-69% stenosis. Normal visualized cervical portion of the right internal carotid artery. There is mild atherosclerotic plaque formation of the origin of the right external carotid artery with less than 50% cross sectional diameter stenosis. LEFT CAROTID ARTERIES: There is atherosclerotic tortuous elongation of the left common carotid artery. There is mild atherosclerotic plaque formation with minimal narrowing of the left carotid bulb. There is mild atherosclerotic plaque formation of the origin of the left internal carotid artery with less than 50% cross sectional diameter stenosis. Normal visualized cervical portion of the left internal carotid artery. There is mild atherosclerotic plaque formation of the origin of the left external carotid artery with less than 50% cross sectional diameter stenosis. VERTEBRAL ARTERIES: The distal right-sided vertebral artery is hypoplastic, be further described on the CT angiogram performed the same day. The left distal vertebral artery is patent. There is degenerative change in the cervical spine. The visualized nonspecific lymph node adjacent to the parotid gland image #[id number]. There are bilateral small nonspecific neck soft tissue lymph nodes. The visualized venous varicosities within the anterior mid chest soft tissues. CT/CTA Neck W/WO Contrast IMPRESSION: 50-69% stenosis of the proximal right internal carotid artery is suggested recommend further evaluation with carotid ultrasound when appropriate Less than 50% stenosis of the left internal carotid artery. Diminutive hypoplastic or potentially stenosed distal right vertebral artery. This should be further described on the CT angiogram of the brain performed the same day. Degenerative changes in cervical spine. Electronically Signed: Dionne Galindo MD at 18:34 EDT Tel , Service support ,
--- NOTE | 2018-03-23 15:53 | CT_ITS ---
STUDY: CTA OF THE BRAIN REASON FOR EXAM: Male, 62 years old. Visual disturbance left eye headache chronic balance problems RADIATION DOSAGE (If Supplied By Facility): CTDIvol = ( 37.07 ) mGy, DLP = ( 1652.66 ) mGycm TECHNIQUE: CT angiography was performed with a multi-detector CT scanner. Data acquisition was obtained from the skull base through the vertex following intravenous administration of ml of . MIP images were reconstructed from the axial data set. Post-processing of the angiographic images was performed, with multiplanar reformation and 3D reconstruction. Individualized dose optimization techniques were used for this CT. COMPARISON: CT scan head May 06, 2014, April 18, 2016, March 21, 2018. FINDINGS: There is trace calcification at the distal aspect of the right-sided petrous carotid artery proximal right cavernous carotid artery. Normal right cavernous carotid artery with a normal supraclinoid bifurcation. There is punctate calcification within the left side cavernous carotid artery. There is a variant anatomy with the left-sided A1 extending from the right HAO 1 and a branchlike fashion without evidence of stenosis. There is non-visualization of the anterior communicating artery (ACOM). Normal bilateral A2 segments of the anterior cerebral arteries. Normal right M1 and M2 segments of the middle cerebral arteries, with a normal M1 bifurcation. Normal left M1 and M2 segments of the middle cerebral arteries, with a normal M1 bifurcation. There is a persistent origin of the right posterior cerebral artery with absence of the posterior communicating artery (PCOM). There is a persistent origin of the left posterior cerebral artery with absence of the posterior communicating artery (PCOM). There is a diminutive appearance of the distal right vertebral artery that appears of normal caliber and appears to extend directly towards a vessel extending posterior aspect of the brainstem possibly anastomosing with a inferior cerebellar branch. There is a left side prominent vertebral artery. Normal basilar artery with a normal basilar bifurcation. The visualized bilateral superior cerebellar (SCA) arteries are normal. Normal bilateral P1, P2 and visualized P3 segments of the posterior cerebral arteries. There is no demonstrated aneurysm of the [place]. There is a chronic appearing prominent CSF space within the right temporal lobe suggesting either atrophy or encephalomalacia. There is mild atrophy within the brain without evidence of an acute focal areas of edema or evidence of aneurysmal dilatation. There is a chronic focus of low attenuation within the left parietal region stable since prior study. CT/CTA Head W/WO Contrast IMPRESSION: Variant anatomy of the anterior circulation as detailed above. Diminutive possibly stenosed or variant anatomy of the right distal vertebral artery. Recommend consideration for follow-up MRI/MRA when appropriate. Chronic atrophy and hydrocephalus evaluation of the right temporal lobe. Electronically Signed: Dionne Galindo MD at 18:43 EDT Tel , Service support ,
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
[2018-03-23] MEDS: 0.9% Normal Saline 1,000 ML 100 ML IV (16:05)
[2018-03-23 16:21] LABS: Erythrocyte Sedimentation Rate 3 mm/hr (0-20)
[2018-03-23 16:38] LABS: CRP < 2.90 mg/L (0.0-3.0); Magnesium 2.4 mg/dL (1.6-2.6); T4 Free Direct 0.95 ng/dL (0.76-1.46)
[2018-03-23 20:02] LABS: Hemoglobin A1c 5.1 % (4.2-6.3)
[2018-03-23] MEDS: Atorvastatin Calcium 80 MG Tablet PO (21:35)
[2018-03-23] MEDS: Famotidine 20 MG Tablet PO (21:36)
[2018-03-23] MEDS: clonazePAM 1 MG Tablet PO (21:38)
[2018-03-24 01:30] VITALS: BP 130/61; PULSE 60; RESP 16; TEMP 36.4; O2SAT 97
[2018-03-24 03:01] VITALS: PULSE 73
[2018-03-24] MEDS: 0.9% Normal Saline 1,000 ML 100 ML IV (04:10)
[2018-03-24] MEDS: Levothyroxine 100 MCG Tablet PO (06:00)
[2018-03-24 06:05] VITALS: BP 144/89; PULSE 59; RESP 16; TEMP 36.4; O2SAT 96
[2018-03-24 06:40] LABS: Absolute Lymphocyte Count 1.66 X10^3/ul (0.83-4.51); Basophil# 0.03 X10^3/uL; Basophil% 0.6 % (0-1); Eosinophil# 0.13 X10^3/uL; Eosinophils% 2.5 % (0-5); Hematocrit 43.5 % (40-54); Lymphocyte # 1.66 X10^3/ul (4.0); Mean Corp Hgb Conc 32.2 g/gl (32-36); Mean Corpuscular Hgb 29.5 pg (27.0-32.0); Mean Corpuscular Volume 91.8 fL (80-94); Mean Platelet Vol. 9.9 fl (6.2-12.0); Monocyte# 0.35 X10^3/uL; Monocyte% 6.7 % (0-10); Neutrophil # 3.01 X10^3/uL (2.7-7.7); Platelet Count 180 K/mm3 (150-450); RBC Distribution Width CV 14.4 % (11.6-14.6); RBC Distribution Width SD 47.4 fl (35.1-43.9); Red Blood Count 4.74 M/mm3 (4.6-6.2); White Blood Count 5.2 K/mm3 (4.4-11.0)
[2018-03-24 06:51] LABS: POSITIVE COUNT NO; POSITIVE DIFFERENTIAL NO; POSITIVE MORPHOLOGY NO
[2018-03-24 06:52] LABS: Anion Gap 8 (5-15); BUN 9 mg/dL (7-18); BUN/Creat Ratio 9.9 RATIO (10-20); Calcium,Total 8.6 mg/dL (8.5-10.1); Chloride 112 mmol/L (98-107); Cholesterol 147 mg/dL (200); Creatinine, Serum 0.91 mg/dL (0.70-1.30); EST Glomerular Filtration Rate 89 mL/min (>60); Est Glom Filt Rate - Afr Amer 108 mL/min (>60); Estimated Creatinine Clearance 99.31 ml/min; Glucose 88 mg/dL (74-106); High Density Lipoprotein 43 mg/dL; Potassium 4.2 mmol/L (3.5-5.1); Sodium Level 148 mmol/L (136-145); Triglycerides 137 mg/dL; Very Low Density Lipoprotein 27 mg/dL (5-40)
[2018-03-24 07:23] VITALS: PULSE 74
[2018-03-24] MEDS: Aspirin E.C. 325 MG Tablet PO (09:02)
[2018-03-24] MEDS: Famotidine 20 MG Tablet PO (09:03)
[2018-03-24] MEDS: Enoxaparin 40 MG/0.4 ML Syringe SC (09:03)
[2018-03-24 10:52] VITALS: PULSE 53
--- NOTE | 2018-03-24 10:57 | DCINST_ITS ---
- Discharge Diagnoses Current Active Problems: Current Active and Chronic Problems Amaurosis fugax of left eye (Acute) Anxiety (Chronic) Obesity (BMI 30.0-34.9) (Chronic) Visual disturbance (Acute) You will use the following diet at home:: No restrictions Discharge Activity: Return to Normal Activity Allergies/Adverse Reactions: Allergies No Known Allergies Allergy (Verified 03/23/18 11:45) Medications to take at Discharge Levothyroxine [Synthroid] 100 mcg PO DAILY 11/01/14 Potassium Chloride [K-Dur] 20 meq PO DAILY 11/09/17 busPIRone [Buspar] 15 mg PO BID 11/09/17 Clonazepam 1 mg PO QHS PRN 03/21/18 Diclofenac [Voltaren] 50 mg PO TID PRN 03/21/18 Aspirin 81 mg PO BID #60 tab 03/24/18 Atorvastatin Calcium 40 mg PO DAILY #60 tab 03/24/18 The following prescriptions were given: Aspirin 81 mg PO BID #60 tab Atorvastatin Calcium 40 mg PO DAILY #60 tab Primary Care Physician: Travis Naik MD [Primary Care Provider] - Please follow up with your Primary Care Physician in: in 5-7 days Test Results: Test results from this visit will be discussed in further detail at your follow- up appointment, if applicable. Please Follow Up With: opthamology When: in 1-2 days Proposed Discharge Date: 03/24/18
--- NOTE | 2018-03-24 10:57 | PCM.DC.SUM ---
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 No evidence for acute infarct Electronically Signed: Nabor Dutton MD at 19:51 EDT , Service support , Head CTA 03/23/18 15:53 IMPRESSION: Variant anatomy of the anterior circulation as detailed above. Diminutive possibly stenosed or variant anatomy of the right distal vertebral artery. Recommend consideration for follow-up MRI/MRA when appropriate. Chronic atrophy and hydrocephalus evaluation of the right temporal lobe. Electronically Signed: Dionne Galindo MD at 18:43 EDT Tel , Service support , Neck CTA 03/23/18 15:53 IMPRESSION: 50-69% stenosis of the proximal right internal carotid artery is suggested recommend further evaluation with carotid ultrasound when appropriate Less than 50% stenosis of the left internal carotid artery. Diminutive hypoplastic or potentially stenosed distal right vertebral artery. This should be further described on the CT angiogram of the brain performed the same day. Degenerative changes in cervical spine. Electronically Signed: Dionne Galindo MD at 18:34 EDT Tel , Service support , Operations: None Summary of Care Provided: The patient is a 62 year old M with past medical history significant for traumatic brain injury who presented with acute visual impairment in the left eye 1. Acute left eye visual impairment: Initial diagnosis was 1 of amaurosis fugax however neurology did not agree with this more so MRI obtained came back negative for acute CVA patient was discharged home instructed to follow-up with ophthalmology 2. Traumatic brain injury supportive care 3. Hypothyroidism-patient is on levothyroxine home dose continued 4. Carotid artery disease as above patient was informed of the result instructed to follow-up with Dr. Travis Naik patient PCP for subsequent care patient in addition was discharged on a statin therapy as well as aspirin 325 mg p.o. daily Discharge Activity: Return to Normal Activity Home Medications: Medications to take at Discharge Levothyroxine [Synthroid] 100 mcg PO DAILY 11/01/14 Potassium Chloride [K-Dur] 20 meq PO DAILY 11/09/17 busPIRone [Buspar] 15 mg PO BID 11/09/17 Clonazepam 1 mg PO QHS PRN 03/21/18 Diclofenac [Voltaren] 50 mg PO TID PRN 03/21/18 Aspirin E.C. [Ecotrin] 325 mg PO DAILY@0800 #60 tab 03/24/18 Atorvastatin Calcium 40 mg PO DAILY #60 tab 03/24/18 Following Prescrptions Were Given to Patient: Aspirin E.C. [Ecotrin] 325 mg PO DAILY@0800 #60 tab Atorvastatin Calcium 40 mg PO DAILY #60 tab Primary Care Physician: Travis Naik MD [Primary Care Provider] - Please follow up with your Primary Care Physician in: in 5-7 days Please Follow Up With: opthamology When: in 1-2 days Disposition: Home Minutes spent on discharge:: 35 Patient Condition:: Stable Medical Necessity - Tobacco Use Smoking Status: Former smoker Tobacco Use: Non-smoker Meaningful Use Info Meaningful Use Diagnoses (Choose all that apply): None applicable Code Visit OBSV E&M: 87913 Observation care discharge
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
--- NOTE | 2018-03-24 11:02 | DS.PCM_ITS ---
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 No evidence for acute infarct Electronically Signed: Nabor Dutton MD at 19:51 EDT , Service support , Head CTA 03/23/18 15:53 IMPRESSION: Variant anatomy of the anterior circulation as detailed above. Diminutive possibly stenosed or variant anatomy of the right distal vertebral artery. Recommend consideration for follow-up MRI/MRA when appropriate. Chronic atrophy and hydrocephalus evaluation of the right temporal lobe. Electronically Signed: Dionne Galindo MD at 18:43 EDT Tel , Service support , Neck CTA 03/23/18 15:53 IMPRESSION: 50-69% stenosis of the proximal right internal carotid artery is suggested recommend further evaluation with carotid ultrasound when appropriate Less than 50% stenosis of the left internal carotid artery. Diminutive hypoplastic or potentially stenosed distal right vertebral artery. This should be further described on the CT angiogram of the brain performed the same day. Degenerative changes in cervical spine. Electronically Signed: Dionne Galindo MD at 18:34 EDT Tel , Service support , Operations: None Summary of Care Provided: The patient is a 62 year old M with past medical history significant for traumatic brain injury who presented with acute visual impairment in the left eye 1. Acute left eye visual impairment: Initial diagnosis was 1 of amaurosis fugax however neurology did not agree with this more so MRI obtained came back negative for acute CVA patient was discharged home instructed to follow-up with ophthalmology 2. Traumatic brain injury supportive care 3. Hypothyroidism-patient is on levothyroxine home dose continued 4. Carotid artery disease as above patient was informed of the result instructed to follow-up with Dr. Travis Naik patient PCP for subsequent care patient in addition was discharged on a statin therapy as well as aspirin 325 mg p.o. daily Discharge Activity: Return to Normal Activity Home Medications: Medications to take at Discharge Levothyroxine [Synthroid] 100 mcg PO DAILY 11/01/14 Potassium Chloride [K-Dur] 20 meq PO DAILY 11/09/17 busPIRone [Buspar] 15 mg PO BID 11/09/17 Clonazepam 1 mg PO QHS PRN 03/21/18 Diclofenac [Voltaren] 50 mg PO TID PRN 03/21/18 Aspirin E.C. [Ecotrin] 325 mg PO DAILY@0800 #60 tab 03/24/18 Atorvastatin Calcium 40 mg PO DAILY #60 tab 03/24/18 Following Prescrptions Were Given to Patient: Aspirin E.C. [Ecotrin] 325 mg PO DAILY@0800 #60 tab Atorvastatin Calcium 40 mg PO DAILY #60 tab Primary Care Physician: Travis Naik MD [Primary Care Provider] - Please follow up with your Primary Care Physician in: in 5-7 days Please Follow Up With: opthamology When: in 1-2 days Disposition: Home Minutes spent on discharge:: 35 Patient Condition:: Stable Medical Necessity - Tobacco Use Smoking Status: Former smoker Tobacco Use: Non-smoker Meaningful Use Info Meaningful Use Diagnoses (Choose all that apply): None applicable Code Visit OBSV E&M: 38953 Observation care discharge
[2018-03-24 12:05] VITALS: BP 131/77; PULSE 79; RESP 16; TEMP 36.8; O2SAT 98
--- NOTE | 2018-03-24 13:00 | RAD_ITS ---
STUDY: SWALLOWING STUDY REASON FOR EXAM: Male, 62 years old. Dysphagia. TECHNIQUE: The examination was performed with Speech Pathology in attendance. Under fluoroscopic observation, the patient ingested thin barium, thick barium, barium pudding, and barium coated cracker. FLUOROSCOPY TIME: 1:11 minutes/seconds 1123 fluoroscopic images were obtained. RADIOLOGIST INVOLVEMENT: Radiologist was present and providing direct supervision. COMPARISON: None. FINDINGS: The following was observed during swallowing of the various mixtures of barium: Thin Barium: There was no evidence of aspiration or laryngeal penetration. Barium Pudding: There was no evidence of aspiration or laryngeal penetration. Barium Coated Cracker: There was no evidence of aspiration or laryngeal penetration. RAD/Swallowing Function w/Video IMPRESSION: Normal tailored barium swallow study. No evidence of increased risk for aspiration. The swallow study findings were discussed with the patient by the speech pathologist at the conclusion of the examination. Please see speech pathology report for more information and recommendations. Electronically Signed: Evan Adame MD at 13:52 EDT Tel [phone], Service support ,
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
== END 2018-03-24 10:56 | disposition home or self-care (01) ==
LOC: ED 13:20 → PCU 18:10
PROVIDERS: Psychiatry & Neurology Neurology; Admitting Provider Family Medicine; Emergency Provider Emergency Medicine; Family Provider Family Medicine; PCP Family Medicine; Visit Provider Internal Medicine
DX: G45.3 Amaurosis fugax (principal); E03.9 Hypothyroidism, unspecified; F41.9 Anxiety disorder, unspecified; Z79.899 Other long term (current) drug therapy; E66.9 Obesity, unspecified; Z68.30 Body mass index [BMI] 30.0-30.9, adult; Z71.3 Dietary counseling and surveillance; Z87.820 Personal history of traumatic brain injury; Z87.891 Personal history of nicotine dependence; R47.01 Aphasia
CPT/HCPCS: 36415; 70496; 70498; 70551; 74230; 80048; 80061; 83036; 83735; 84439; 84443; 84484; 85025; 85610; 85652; 85730; 86140; 92611; 93005; 93306; 96361; 96372; 96374; 97162; 97165; 99218; 99282; J7030; Q9967; G0378

== ENCOUNTER 2018-06-26 09:47 | Emergency (ER) | payer MEDICARE, SELFPAY ==
[2018-06-26 09:50] VITALS: BP 163/94; PULSE 60; RESP 18; TEMP 37.1; O2SAT 100; BMI 31.2
--- NOTE | 2018-06-26 10:00 | EKG12_ITS ---
Test Reason : FATIGUE Blood Pressure : / mmHG Vent. Rate : 055 BPM Atrial Rate : 055 BPM P-R Int : 184 ms QRS Dur : 088 ms QT Int : 408 ms P-R-T Axes : 050 042 049 degrees QTc Int : 390 ms Sinus bradycardia Otherwise normal ECG Confirmed by SANTANA EATON, BECKY ([id number]), staff editor BEKAH COULTER ([id number]) on 06/29/2018 7:37:51 AM Referred By: BRUCE Confirmed By:BECKY DILLON MD
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
[2018-06-26 10:23] LABS: Absolute Lymphocyte Count 1.56 X10^3/ul (0.83-4.51); Absolute Neutrophil Count 3.7 X10^3/uL (2.0-7.7); Basophil# 0.03 X10^3/uL; Basophil% 0.5 % (0-1); Eosinophil# 0.11 X10^3/uL; Eosinophils% 1.9 % (0-5); Hematocrit 45.6 % (40-54); Hemoglobin 14.9 g/dl (13.0-16.5); Lymphocyte # 1.56 X10^3/ul (4.0); Lymphocyte % 26.9 % (19-41); Mean Corp Hgb Conc 32.7 g/gl (32-36); Mean Corpuscular Hgb 29.3 pg (27.0-32.0); Mean Corpuscular Volume 89.6 fL (80-94); Mean Platelet Vol. 9.8 fl (6.2-12.0); Monocyte% 6.9 % (0-10); Neutrophil # 3.68 X10^3/uL (2.7-7.7); Neutrophil % 63.6 % (47-70); Platelet Count 185 K/mm3 (150-450); RBC Distribution Width CV 14.1 % (11.6-14.6); RBC Distribution Width SD 45.7 fl (35.1-43.9); Red Blood Count 5.09 M/mm3 (4.6-6.2); White Blood Count 5.8 K/mm3 (4.4-11.0)
[2018-06-26 10:24] LABS: POSITIVE COUNT NO; POSITIVE DIFFERENTIAL NO; POSITIVE MORPHOLOGY NO
[2018-06-26 10:36] LABS: Anion Gap 7 (5-15); BUN 12 mg/dL (7-18); BUN/Creat Ratio 15.3 RATIO (10-20); Calcium,Total 8.9 mg/dL (8.5-10.1); Chloride 107 mmol/L (98-107); Creatinine, Serum 0.79 mg/dL (0.70-1.30); EST Glomerular Filtration Rate 106 mL/min (>60); Est Glom Filt Rate - Afr Amer 128 mL/min (>60); Estimated Creatinine Clearance 114.39 ml/min; Glucose 82 mg/dL (74-106); Potassium 4.1 mmol/L (3.5-5.1); Sodium Level 141 mmol/L (136-145)
--- NOTE | 2018-06-26 10:40 | ED.DEP ---
ED Disposition - Plan for ED Patient: Disposition: Home or Assisted Living Chief Complaint: Fatigue Instructions: ED Weakness [facility] Referrals: Travis Naik MD [Primary Care Provider] -
[2018-06-26 10:57] VITALS: BP 124/67; PULSE 59; RESP 16; O2SAT 97
--- OUTSIDE RECORDS SUMMARY | 2018-08-12 00:51 | XMS RPT_ITS ---
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 [address] [place], MEDICAREPolicy [id number] Baptist Hospital [address]Adk: Number: Repository [id number] (HP) Date:3289-03-39DL [address] [place] [phone]: 03/23/2018 Secondary NOT GIVENUNK [place] Insurance:SELF PAY [facility] Number: Effective Repository Date:2018-03-23 03/21/2018 ELOINA W Primary ELOINA Abrams [id number] N Insurance:HUMANA GOLD KRAJCIKDOB: [address] [place], MEDICAREPolicy [id number] Hospital [place] [address]Pkl: Number: Repository [id number] (HP) Date:9172-04-31TB [address] [place] [phone]: 03/21/2018 Secondary NOT GIVENUNK [place] Insurance:SELF PAY [facility] Number: Effective Repository Date:2018-03-21 11/14/2017 ELOINA Henderson Primary ELOINA Abrams [id number] N Insurance:HUMANA GOLD KRAJCIKDOB: Community [address] [facility], MEDICAREPolicy [id number] Baptist Hospital [address]Jrc: Number: Repository [id number] (HP) Date:4347-47-66PD [address] [place] [phone]: 11/14/2017 Secondary NOT GIVENUNK [place] Insurance:SELF PAY [facility] Number: Effective Repository Date:2017-11-12 11/10/2017 ELOINA W Primary ELOINA Abrams [id number] N Insurance:HUMANA GOLD KRAJCIKDOB: [address] [place], MED[place]AREPolicy [id number] [place] [address]Tel: Number: Repository [id number] (HP) Date:0436-76-60MH [address] [place] [phone]: 11/10/2017 Secondary NOT GIVENUNK [place] Insurance:SELF PAY [facility] Number: Effective Repository Date:2017-11-10 11/09/2017 Eloina W Primary Eloina Abrams [id number] N Insurance:HUMANA GOLD KrajcikDOB: [address] [place], [place]AREPolicy [id number] [place]ille [address]Tel: Number: Repository [id number] (HP) Date:7402-43-58NX [address] [place] [phone]: 11/09/2017 Secondary NOT GIVENUNK [place] Insurance:SELF PAY [facility] Number: Effective Repository Date:2017-11-09 11/09/2017 Eloina W Primary Eloina Abrams [id number] N Insurance:HUMANA GOLD KrajcikDOB: Community Market [facility], MEDICAREPolicy [id number] Baptist Hospital [address]Hrr: Number: Repository [id number] (HP) Date:7173-87-60CL [address] [place] [phone]: 11/09/2017 Secondary NOT GIVENUNK [place] Insurance:SELF PAY [facility] Number: Effective Repository Date:2017-11-09 11/09/2017 Eloina Henderson Primary Eloina [id number] N Insurance:HUMANA GOLD KrajcikDOB: [address] [place], [place]ARE[place] [id number] Baptist Hospital [address]Nyh: Number: Repository [id number] (HP) Date:8721-22-75PE [address] [place] [phone]: 11/09/2017 Secondary NOT GIVENUNK [place] Insurance:SELF PAY [facility] Number: Effective Repository Date:2017-11-09 10/29/2017 Eloina Henderson Primary Eloina Abrams [id number] N Insurance:HUMANA GOLD KrajcikDOB: [address] [place], MED[place]AREPolicy [id number] Baptist Hospital [address]Myb: Number: Repository [id number] (HP) Date:8807-99-04VQ [address] [place] [phone]: 10/29/2017 Secondary NOT GIVENUNK [place] Insurance:SELF PAY [facility] Number: Effective Repository Date:2017-10-29
== END 2018-06-26 10:58 | disposition home or self-care (01) ==
PROVIDERS: Emergency Provider Emergency Medicine; Family Provider Family Medicine; PCP Family Medicine
DX: R53.83 Other fatigue (principal); Z87.820 Personal history of traumatic brain injury; Z79.82 Long term (current) use of aspirin; Z79.899 Other long term (current) drug therapy
CPT/HCPCS: 80048; 84484; 85025; 93005; 99283; A4216

== ENCOUNTER → 2019-06-04 08:24 | Outpatient (CLI) | payer MEDICARE, SELFPAY ==
[2019-06-04 09:35] LABS: ALB/GLOB Ratio 1.2 RATIO (0.9-2.4); AST(SGOT) 15 U/L (15-37); Alanine Aminotransfer ALT/SGPT 27 U/L (16-61); Alkaline Phosphatase 71 U/L (45-117); Anion Gap 5 (5-15); BUN 12 mg/dL (7-18); BUN/Creat Ratio 12.8 RATIO (10-20); Calcium,Total 9.3 mg/dL (8.5-10.1); Chloride 109 mmol/L (98-107); Cholesterol 134 mg/dL (200); Creatinine, Serum 0.94 mg/dL (0.70-1.30); EST Glomerular Filtration Rate 86 mL/min (>60); Est Glom Filt Rate - Afr Amer 104 mL/min (>60); Globulin 3.4 g/dL (2.2-4.2); Glucose 97 mg/dL (74-106); High Density Lipoprotein 45 mg/dL; Magnesium 2.5 mg/dL (1.6-2.6); Protein, Total 7.4 g/dL (6.4-8.2); Sodium Level 143 mmol/L (136-145); Thyroid Stim Hormone (TSH) 1.78 uIU/mL (0.358-3.74); Triglycerides 143 mg/dL; Very Low Density Lipoprotein 29 mg/dL (5-40)
== END ==
PROVIDERS: Family Provider Family Medicine; PCP Family Medicine; Referring Provider Family Medicine; Visit Provider Family Medicine
DX: E03.9 Hypothyroidism, unspecified (principal); E78.00 Pure hypercholesterolemia, unspecified; R25.2 Cramp and spasm
CPT/HCPCS: 36415; 80053; 80061; 83735; 84443

== ENCOUNTER 2020-09-19 04:37 | Outpatient (RCR) | payer MEDICARE, SELFPAY ==
[2020-09-19] MEDS: COVID-19 VACC, MRNA(PFIZER)/PF 30 MCG/0.3 ML SYRINGE IM (12:04)
[2020-10-10] MEDS: COVID-19 VACC, MRNA(PFIZER)/PF 30 MCG/0.3 ML SYRINGE IM (10:24)
== END 2020-12-19 23:59 ==
LOC: IMMUN 04:37
PROVIDERS: PCP Family Medicine; Visit Provider Family Medicine
DX: Z23 Encounter for immunization (principal)
CPT/HCPCS: 0001A; 0002A; 91300

== ENCOUNTER → 2021-04-30 15:24 | Outpatient (CLI) | payer MEDICARE, SELFPAY ==
[2021-04-30 17:50] LABS: Absolute Lymphocyte Count 1.29 X10^3/uL (0.83-4.51); Basophil# 0.04 X10^3/uL; Basophil% 0.7 % (0-1); Eosinophil# 0.02 X10^3/uL; Eosinophils% 0.4 % (0-5); Hematocrit 41.1 % (40-54); Hemoglobin 13.6 g/dL (13.0-16.5); Lymphocyte # 1.29 X10^3/ul (0.83-4.51); Lymphocyte % 22.8 % (19-41); Mean Corp Hgb Conc 33.1 g/dL (32-36); Mean Corpuscular Hgb 30.3 pg (27.0-32.0); Mean Corpuscular Volume 91.5 fL (80-94); Monocyte# 0.34 X10^3/uL; NRBC Flagged by Analyzer 0 % (0-5); Neutrophil # 3.96 X10^3/uL (2.7-7.7); Neutrophil % 69.7 % (47-70); Platelet Count 191 K/mm3 (150-450); RBC Distribution Width CV 13.5 % (11.6-14.6); Red Blood Count 4.49 M/mm3 (4.6-6.2); White Blood Count 5.7 K/mm3 (4.4-11.0)
[2021-04-30 18:20] LABS: Vitamin B12 1595 pg/mL (211-911); Vitamin D,25 Hydroxy 42.3 ng/mL
[2021-04-30 18:32] LABS: T4 Free Direct 0.85 ng/dL (0.76-1.46); Thyroid Stim Hormone (TSH) 1.53 uIU/mL (0.358-3.74)
== END ==
PROVIDERS: Family Medicine; PCP Family Medicine; Visit Provider Family Medicine
DX: R53.83 Other fatigue (principal)
CPT/HCPCS: 36415; 82306; 82607; 84439; 84443; 85025

== ENCOUNTER 2022-07-17 16:46 | Emergency (ER) | payer MEDICARE, SELFPAY ==
[2022-07-17 16:47] VITALS: BP 153/73; PULSE 77; RESP 14; TEMP 36.8; O2SAT 98; BMI 27.1
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
[2022-07-17 19:33] VITALS: RESP 18
== END 2022-07-17 19:35 | disposition home or self-care (01) ==
LOC: ED 19:34
PROVIDERS: Emergency Provider Student in an Organized Health Care Education/Training Program; Visit Provider Student in an Organized Health Care Education/Training Program
DX: M79.605 Pain in left leg (principal); G89.29 Other chronic pain; Z87.891 Personal history of nicotine dependence
CPT/HCPCS: 99282

== ENCOUNTER → 2022-09-10 | Outpatient (CLI) | payer MEDICARE, SELFPAY ==
[2022-09-10 16:27] LABS: ALB/GLOB Ratio 1.2 RATIO (0.9-2.4); AST(SGOT) 15 U/L (15-37); Alanine Aminotransfer ALT/SGPT 24 U/L (16-61); Albumin, Serum 3.7 g/dL (3.2-5.0); Alkaline Phosphatase 62 U/L (45-117); Anion Gap 6 (5-15); BUN 9 mg/dL (7-18); BUN/Creat Ratio 12.8 RATIO (10-20); Calcium,Total 9.4 mg/dL (8.5-10.1); Chloride 100 mmol/L (98-107); Cholesterol 195 mg/dL (200); EST Glomerular Filtration Rate 118 mL/min (>60); Est Glom Filt Rate - Afr Amer 143 mL/min (>60); Globulin 3.2 g/dL (2.2-4.2); Glucose 83 mg/dL (74-106); High Density Lipoprotein 66 mg/dL; Protein, Total 6.9 g/dL (6.4-8.2); Sodium Level 135 mmol/L (136-145); Triglycerides 115 mg/dL; Very Low Density Lipoprotein 23 mg/dL (5-40)
== END | disposition home or self-care (01) ==
PROVIDERS: PCP Family Medicine; Referring Provider Family Medicine; Visit Provider Family Medicine
DX: E03.9 Hypothyroidism, unspecified (principal); E78.00 Pure hypercholesterolemia, unspecified
CPT/HCPCS: 36415; 80053; 80061; 84443

== ENCOUNTER → 2024-09-09 | Outpatient (CLI) | payer MEDICARE, SELFPAY ==
[2024-09-09 14:59] LABS: Absolute Lymphocyte Count 0.89 X10^3/uL (0.83-4.51); Absolute Neutrophil Count 4.4 X10^3/uL (2.0-7.7); Basophil# 0.02 X10^3/uL; Basophil% 0.3 % (0-1); Eosinophil# 0.01 X10^3/uL; Eosinophils% 0.2 % (0-5); Lymphocyte # 0.89 X10^3/ul (0.83-4.51); Lymphocyte % 15.5 % (19-41); Mean Corp Hgb Conc 32.6 g/dL (32-36); Mean Corpuscular Hgb 29.1 pg (27.0-32.0); Mean Corpuscular Volume 89.4 fL (80-94); Mean Platelet Vol. 9.2 fl (6.2-12.0); Monocyte# 0.36 X10^3/uL; Monocyte% 6.3 % (0-10); NRBC Flagged by Analyzer 0 % (0-5); Neutrophil # 4.44 X10^3/uL (2.7-7.7); Neutrophil % 77.2 % (47-70); Platelet Count 245 K/mm3 (150-450); RBC Distribution Width CV 13.8 % (11.6-14.6); RBC Distribution Width SD 46.4 fl (35.1-43.9); Red Blood Count 4.81 M/mm3 (4.6-6.2); White Blood Count 5.8 K/mm3 (4.4-11.0)
[2024-09-09 16:10] LABS: ALB/GLOB Ratio 1.6 RATIO (0.9-2.4); AST(SGOT) 23 U/L (<=37); Alanine Aminotransfer ALT/SGPT 15 U/L (<=46); Albumin, Serum 4.4 g/dL (3.4-4.8); Alkaline Phosphatase 68 U/L (40-129); Anion Gap 9 (5-15); BUN 11 mg/dL (4-19); Calcium 10.2 mg/dL (7.6-11.0); Carbon Dioxide 24.9 mmol/L (22.0-29.0); Chloride 95 mmol/L (96-108); Creatinine, Serum 0.7 mg/dL (0.8-1.3); EST Glomerular Filtration Rate 97 (>60); Globulin 2.7 g/dL (2.2-4.2); Glucose 91 mg/dL (70-99); PSA,Total - Annual Screen 0.67 ng/mL (0.02-4.00); Potassium 4.6 mmol/L (3.3-5.1); Protein, Total 7.1 g/dL (5.9-8.4); Sodium Level 130 mmol/L (133-145); Total Bilirubin 0.52 mg/dL (0.00-1.30)
[2024-09-09 20:04] LABS: Cholesterol 233 mg/dL (<=200); High Density Lipoprotein 83 mg/dL; Low Density Lipoprotein Calc. 135 mg/dL; Triglycerides 75 mg/dL; Very Low Density Lipoprotein 15 mg/dL (5-40)
== END | disposition home or self-care (01) ==
PROVIDERS: PCP Family Medicine; Referring Provider Family Medicine; Visit Provider Family Medicine
DX: I10 Essential (primary) hypertension (principal); E03.9 Hypothyroidism, unspecified; R53.83 Other fatigue; Z12.5 Encounter for screening for malignant neoplasm of prostate
CPT/HCPCS: 36415; 80053; 80061; 82306; 84153; 84443; 85025; G0103